=== PATIENT | male | born 1960 | race Caucasian/White ===

== ENCOUNTER → 2017-10-03 | Outpatient (CLI) | payer BC ==
--- NOTE | 2017-10-03 08:54 | DIAGNOSTIC IMAGING REPORT ---
LUMBAR SPINE W/O CONTRAST HISTORY: Pain LUMBAR SPINE PAIN TECHNIQUE: Multiplanar multisequence MRI of the lumbar spine was performed without the use of contrast. COMPARISON: None. FINDINGS: For the purpose of the report the L5-S1 disc space will be located on axial image 27 of 30. Moderate degenerative disc change L5-S1. Mild disc desiccation throughout the main to the lumbar spine. L1-L2: No significant central canal or neural foraminal narrowing. L2-L3: No significant central canal or neural foraminal narrowing. L3-L4: No significant central canal or neural foraminal narrowing. L4-L5: Minimal broad-based disc bulge. No significant impact with thecal sac. L5-S1: Left central bulging disc with mild impact left neuroforamina and left anterior thecal sac. IMPRESSION: 1. Left posterior disc bulge L5-S1. 2. Disc is moderate narrowing left neuroforamina and mild impact upon the anterior thecal sac. 3. Minimal disc bulge L4-L5. The above report was generated using voice recognition software. It may contain grammatical, syntax or spelling errors. Electronically signed by: Randall Quinn M.D. 10/03/2017 8:53 AM Dictated Date/Time: 10/03/2017 8:48 AM
== END | disposition home or self-care (01) ==
LOC: C.MRIBC 07:32
PROVIDERS: ATTEND Pain Medicine Interventional Pain Medicine
DX: M51.27 Other intervertebral disc displacement, lumbosacral region (principal)